=== PATIENT | male | born 1965 | race Caucasian/White ===

== ENCOUNTER 2022-08-03 01:13 | Emergency (ER) | payer SELFPAY ==
[~2022-08-03] VITALS: Ht 172.7 cm; Wt 86.2 kg
[~2022-08-03 01:13] MED LIST: CYCL10 PO; HYDACE5 PO; NAPR500 PO
[2022-08-03 03:47] LABS: Influenza A, PCR NEGATIVE (NEGATIVE); Influenza B, PCR NEGATIVE (NEGATIVE); Resp Syncytial Virus, PCR NEGATIVE (NEGATIVE)
[2022-08-03 04:08] LABS: SARS-Cov-2 (COVID-19) PCR, MMC POSITIVE (NEGATIVE)
== END 2022-08-03 04:46 | disposition home or self-care (01) ==
LOC: ER 01:13
PROVIDERS: Student in an Organized Health Care Education/Training Program
DX: U07.1 COVID-19 (principal); B34.9 Viral infection, unspecified; Z88.0 Allergy status to penicillin; Z88.2 Allergy status to sulfonamides
CPT/HCPCS: 0241U